=== PATIENT | female | born 2000 | race Caucasian/White ===

== ENCOUNTER 2021-12-06 23:38 | Emergency (ER) | payer OTHER, SELFPAY ==
[2021-12-07 00:07] VITALS: BP 109/70; PULSE 82; RESP 16; TEMP 37; O2SAT 96; BMI 20.8
[2021-12-07 01:34] VITALS: BP 115/81; PULSE 90; RESP 18; TEMP 36.9; O2SAT 100
--- NOTE | 2021-12-07 02:22 | ED_ITS ---
HPI - Head Injury General Chief complaint: Head Injury Stated complaint: table fell on her head at work Time Seen by Provider: 12/07/21 01:55 Source: patient Mode of arrival: ambulatory History of Present Illness HPI Narrative: 21-year-old female without significant past medical history presents for evaluation after she states that a table at work fell on the left parietal occipital area without loss of consciousness. She currently reports a mild headache but denies any visual/auditory/speech changes and denies any numbness or tingling into either upper extremity. Review of Systems Review of Systems: Pertinent positives and negatives as stated in HPI 10 point review of systems is otherwise negative. PMFSH Past Medical History Source: nursing notes reviewed Social History Social History Advance Directives: No Advance Directives Information Provided: No Physical Exam Vital Signs: Vital Signs: Last Vital Signs Temp 98.5 F 12/07/21 01:34 Pulse 90 12/07/21 01:34 Resp 18 12/07/21 01:34 BP 115/81 12/07/21 01:34 Pulse Ox 100 12/07/21 01:34 O2 Del Method 12/07/21 01:34 BMI result Body Mass Index 20.8 VITAL SIGNS: Reviewed. GENERAL: Well developed, well nourished, in no acute distress. HEAD: Normocephalic/atraumatic, there is no contusion or laceration. EYES: PERRLA, EOMI EARS: Ext canals without abnormality OROPHARYNX: no oral lesions noted, posterior pharynx clear NECK: Supple, no adenopathy, no midline cervical spine tenderness or paraspinal tenderness LUNGS: Normal breath sounds. No adventitious sounds or accessory muscle use. SpO2<100> CARDIOVASCULAR: Regular rate and rhythm without noted murmurs ABDOMEN: Soft, non-tender, non-distended with bowel sounds. SKIN: Inspection of the skin reveals no rashes NEUROLOGIC: Alert and oriented x 4. Strength and sensation to light touch were grossly intact x 4. Course Course Course Narrative: 21-year-old female with history and clinical presentation consistent with minor injury to the head and did not undergo loss of consciousness. Patient has no neuro deficits and will receive combination analgesics and be discharged home in stable condition. Discharge Plan Discharge Clinical Impression: Minor closed head injury Patient Disposition: Home, Self-Care Instructions: Head Injury (ED) Additional Instructions: 1. Recommend [id number] Tylenol/ibuprofen as needed for headaches and can consider applying ice to unexposed skin for 5-10 minutes, 3 to 4 times a day. 2. Call the office of your primary care provider Thursday for re- evaluation. Return to the ER for worsening symptoms.
--- NOTE | 2021-12-07 02:27 | PC.NURSE ---
visitor at bedside - pt very talkative and laughing with friend. no apparent distress. no current complaints.
== END 2021-12-07 02:31 | disposition home or self-care (01) ==
PROVIDERS: Emergency Provider Student in an Organized Health Care Education/Training Program
DX: S09.90XA Unspecified injury of head, initial encounter (principal); W20.8XXA Other cause of strike by thrown, projected or falling object, initial encounter; Y93.89 Activity, other specified; Y92.511 Restaurant or cafe as the place of occurrence of the external cause; Y99.0 Civilian activity done for income or pay
CPT/HCPCS: 99282